=== PATIENT | male | born 1975 | race Caucasian/White ===

== ENCOUNTER 2017-03-09 03:47 | Emergency (ER) | payer OTHER, SELFPAY ==
[2017-03-09 05:38] LABS: MEAN CORPUSCULAR HEMOGLOBIN 30.8 pg (27.0-33.0); MEAN CORPUSCULAR HGB CONC 34.7 g/dl (32.0-36.5); MEAN CORPUSCULAR VOLUME 88.7 fl (80.0-96.0); PLATELET COUNT, AUTOMATED 329 10^3/uL (150-450); RED CELL DISTRIBUTION WIDTH 12.5 % (11.5-14.5); WHITE BLOOD COUNT 11.2 10^3/uL (4.0-10.0)
[2017-03-09 05:56] LABS: METHADONE URINE NEGATIVE (NEGATIVE)
[2017-03-09 06:13] LABS: ALBUMIN 4.2 GM/DL (3.2-5.2); ALBUMIN/GLOBULIN RATIO 1.45 (1.00-1.93); ALKALINE PHOSPHATASE 66 U/L (45-117); ALT/SGPT 32 U/L (12-78); ANION GAP 9 MEQ/L (8-16); AST/SGOT 17 U/L (7-37); BILIRUBIN,DIRECT 0.1 MG/DL (0.0-0.2); BILIRUBIN,TOTAL 0.4 MG/DL (0.2-1.0); BLOOD UREA NITROGEN 10 MG/DL (7-18); CALCIUM LEVEL 8.7 MG/DL (8.5-10.1); CARBON DIOXIDE LEVEL 26 MEQ/L (21-32); CHLORIDE LEVEL 110 MEQ/L (98-107); CREATININE FOR GFR 0.83 MG/DL (0.70-1.30); GLOMERULAR FILTRATION RATE > 60.0 (>60); GLUCOSE, FASTING 90 MG/DL (70-105); POTASSIUM SERUM 3.9 MEQ/L (3.5-5.1); SODIUM LEVEL 145 MEQ/L (136-145); TOTAL PROTEIN 7.1 GM/DL (6.4-8.2)
[2017-03-09 09:30] VITALS: BP 115/75
== END 2017-03-09 09:32 | disposition home or self-care (01) ==
LOC: M ED 03:47
DX: F10.129 Alcohol abuse with intoxication, unspecified (principal); F17.200 Nicotine dependence, unspecified, uncomplicated
CPT/HCPCS: 80048; 80076; 80307; 84443; 85027; 99284; G0480

== ENCOUNTER 2020-11-27 13:53 | Emergency (ER) | payer SELFPAY ==
[~2020-11-27] VITALS: Ht 180.3 cm; Wt 78.3 kg
[2020-11-27] MEDS ORDERED: ONDANSETRON 4MG/2ML VIAL IV ONE (14:10)
[2020-11-27 14:20] LABS: HEMATOCRIT 45.2 % (42.0-52.0); HEMOGLOBIN 15.2 g/dl (13.5-17.5); MEAN CORPUSCULAR HEMOGLOBIN 29.1 pg (27.0-33.0); MEAN CORPUSCULAR HGB CONC 33.6 g/dl (32.0-36.5); MEAN CORPUSCULAR VOLUME 86.6 fl (80.0-96.0); PLATELET COUNT, AUTOMATED 408 10^3/uL (150-450); RED BLOOD COUNT 5.22 10^6/uL (4.30-6.10); WHITE BLOOD COUNT 9.1 10^3/uL (4.0-10.0)
[2020-11-27 14:44] LABS: ALBUMIN 3.7 GM/DL (3.2-5.2); ALT/SGPT 28 U/L (12-78); BILIRUBIN,TOTAL 0.3 MG/DL (0.2-1.0); BLOOD UREA NITROGEN 18 MG/DL (7-18); CALCIUM LEVEL 8.8 MG/DL (8.5-10.1); CARBON DIOXIDE LEVEL 25 MEQ/L (21-32); CHLORIDE LEVEL 110 MEQ/L (98-107); CREATININE FOR GFR 1.12 MG/DL (0.70-1.30); GLOMERULAR FILTRATION RATE > 60.0 (>60); GLUCOSE, FASTING 115 MG/DL (70-100); MAGNESIUM LEVEL 2.2 MG/DL (1.8-2.4); SODIUM LEVEL 142 MEQ/L (136-145); TOTAL PROTEIN 7.1 GM/DL (6.4-8.2)
[2020-11-27 15:01] LABS: LYMPHOCYTES 49 % (16-44); MONOCYTES 10 % (0-5); NEUTROPHILS 41 % (28-66); OVALOCYTES 1+; PLATELET ESTIMATE NORMAL (NORMAL); POIKILOCYTOSIS 1+
[2020-11-27] MEDS ORDERED: NS 1,000 ML IV ONE (15:25)
[2020-11-27 15:39] VITALS: BP 123/78
--- NOTE | 2020-11-28 19:15 | ECGEPIP ---
[facility] - ED Test Date: 2020-11-27 Pat Name: LIT HANDY Department: Room: - Gender: Male Client Coordinator: er : 1975 Requested By: DILLON Green Order Number: [id number] Reading MD: Juany Solorzano Measurements Intervals Molt Rate: 108 P: 72 IA: 128 QRS: -59 QRSD: 88 T: 50 QT: 344 QTc: 460 Interpretive Statements Sinus tachycardia Left axis deviation Junctional ST depression, probably normal irbbb No prior Electronically Signed on 11-28-2020 19:15:11 EDT by Juany Solorzano
== END 2020-11-27 15:35 | disposition left against medical advice (07) ==
LOC: M ED 13:53
DX: F19.130 Other psychoactive substance abuse with withdrawal, uncomplicated (principal); R11.2 Nausea with vomiting, unspecified; R00.0 Tachycardia, unspecified; Z53.9 Procedure and treatment not carried out, unspecified reason; F17.200 Nicotine dependence, unspecified, uncomplicated
CPT/HCPCS: 80047; 80053; 83605; 83735; 84484; 85025; 93005; 96374; 99283; J2405

== ENCOUNTER 2021-07-17 18:51 | Emergency (ER) | payer SELFPAY ==
[~2021-07-17] VITALS: Ht 182.9 cm; Wt 77.2 kg
[2021-07-17 19:31] VITALS: BP 143/87
== END 2021-07-17 20:12 | disposition home or self-care (01) ==
LOC: M ED 18:51
DX: R45.851 Suicidal ideations (principal); F43.0 Acute stress reaction; F17.200 Nicotine dependence, unspecified, uncomplicated; F11.10 Opioid abuse, uncomplicated; F10.10 Alcohol abuse, uncomplicated

== ENCOUNTER 2022-03-31 21:29 | Emergency (ER) | payer SELFPAY ==
[~2022-03-31] VITALS: Ht 180.3 cm; Wt 84.6 kg
[2022-03-31 21:30] VITALS: BP 141/73
== END 2022-03-31 21:56 | disposition left against medical advice (07) ==
LOC: M ED 21:29
DX: Z53.21 Procedure and treatment not carried out due to patient leaving prior to being seen by health care provider (principal)

== ENCOUNTER 2023-01-21 10:46 | Inpatient (IN) | payer OTHER, SELFPAY ==
[~2023-01-21] VITALS: Ht 180.3 cm; Wt 81.1 kg
[2023-01-21 13:04] LABS: BASO % 0.2 % (0.0-1.0); EOS % 0.2 % (0.0-3.0); HEMATOCRIT 45.7 % (42.0-52.0); HEMOGLOBIN 15.6 g/dl (13.5-17.5); LYMPH # 1.6 10^3/uL (1.5-5.0); MEAN CORPUSCULAR HEMOGLOBIN 30.5 pg (27.0-33.0); MEAN CORPUSCULAR HGB CONC 34.1 g/dl (32.0-36.5); MEAN CORPUSCULAR VOLUME 89.4 fl (80.0-96.0); MONO % 10.2 % (2.0-8.0); NEUTROPHILS # 12.3 10^3/uL (1.5-8.5); NEUTROPHILS % 78.9 % (36.0-66.0); PLATELET COUNT, AUTOMATED 253 10^3/uL (150-450); RED BLOOD COUNT 5.11 10^6/uL (4.30-6.10); WHITE BLOOD COUNT 15.6 10^3/uL (4.0-10.0)
[2023-01-21 13:05] LABS: MONO # 1.6 10^3/uL (0.0-0.8)
[2023-01-21] MEDS ORDERED: BOOSTRIX VACCINE (TETANUS/DIPHTH/ACEL. PERTUSSIS) 0.5ML SYR IM ONE (13:05)
[2023-01-21] MEDS ORDERED: ONDANSETRON 4MG 2ML VIAL IV ONE (13:05)
[2023-01-21] MEDS ORDERED: MORPHINE 4 MG/ML 1ML VIAL IV ONE (13:05)
[2023-01-21 13:25] LABS: BLOOD UREA NITROGEN 15 MG/DL (9-23); CALCIUM LEVEL 8.5 MG/DL (8.5-10.1); CARBON DIOXIDE LEVEL 25 MMOL/L (20-31); CHLORIDE LEVEL 105 MMOL/L (98-107); CREATININE FOR GFR 0.82 MG/DL (0.70-1.30); GLOMERULAR FILTRATION RATE > 60.0 (>60); GLUCOSE, FASTING 92 MG/DL (60-100); POTASSIUM SERUM 5.4 MMOL/L (3.5-5.1); SODIUM LEVEL 135 MMOL/L (136-145)
[2023-01-21 14:12] LABS: ERYTHROCYTE SEDIMENTATION RATE 37 mm/hr (0-15)
[2023-01-21] MEDS ORDERED: VANCOMYCIN HCL 1,750 MG in NS 250 ML IV ONE (15:20)
[2023-01-21] MEDS ORDERED: NS 1,000 ML IV ONE (15:20)
[2023-01-21] MEDS ORDERED: MED REC IN PROGRESS XX SCH (15:30)
[2023-01-21] MEDS ORDERED: VANCOMYCIN HCL 1,000 MG, VIAL MATE ADAPTER 1 EACH in D5W 250 ML IV ONE (16:00)
[2023-01-21] MEDS ORDERED: NICOTINE 21MG/24HR 1 EA TRANSDERMAL TD PRN (16:05)
[2023-01-21] MEDS ORDERED: HOME MED LIST COMPLETE! XX SCH (16:05)
[2023-01-21] MEDS ORDERED: ACETAMINOPHEN TAB 650MG DOSE (2X325MG) PO PRN (16:05)
[2023-01-21] MEDS ORDERED: VANCOMYCIN HCL 750 MG, VIAL MATE ADAPTER 1 EACH in D5W 250 ML IV ONE (17:00)
[2023-01-21 17:34] VITALS: BP 136/87; TEMP 100.4; O2SAT 100
[2023-01-21] MEDS: MORPHINE 4 MG/ML 1ML VIAL IV PRN (17:48)
[2023-01-21] MEDS ORDERED: PROHANCE 279.3MG/ML 5ML VIAL As Ordered ONE (17:53)
[2023-01-21] MEDS ORDERED: PROHANCE 279.3MG/ML 15ML VIAL As Ordered ONE (17:53)
[2023-01-21 17:54] LABS: BLOOD UREA NITROGEN 13 MG/DL (9-23); CALCIUM LEVEL 8.4 MG/DL (8.5-10.1); CARBON DIOXIDE LEVEL 24 MMOL/L (20-31); CHLORIDE LEVEL 104 MMOL/L (98-107); CREATININE FOR GFR 0.71 MG/DL (0.70-1.30); GLOMERULAR FILTRATION RATE > 60.0 (>60); GLUCOSE, FASTING 100 MG/DL (60-100); POTASSIUM SERUM 4.2 MMOL/L (3.5-5.1); SODIUM LEVEL 134 MMOL/L (136-145)
[2023-01-21] MEDS ORDERED: VANCOMYCIN HCL 1 MG in IV FLUID PLACE HOLDER 1 EA IV SCH (18:25)
[2023-01-21 18:35] LABS: HIV 1&2 SCREEN NEGATIVE (NEGATIVE)
[2023-01-21] MEDS: NS 1,000 ML IV SCH (18:59)
[2023-01-21] MEDS: PIPERACILLIN/TAZOBACTAM SOD 3.375 GM in D5W MINI-BAG PLUS 50 ML IV SCH ×2 (19:00→23:50)
[2023-01-21 19:47] VITALS: BP 122/72; TEMP 99; O2SAT 98
[2023-01-21] MEDS ORDERED: cefTRIAXone SOD 1GM VIAL IM ONE (20:00)
[2023-01-21] MEDS ORDERED: LIDOCAINE 1% SDV 5ML VIAL DILUENT ONE (20:00)
[2023-01-21] MEDS: HEPARIN SOD (PORCINE) 5000UNITS/ML 1ML VIAL/SYRINGE SQ SCH (21:00)
[2023-01-21] MEDS: VANCOMYCIN HCL 750 MG, VIAL MATE ADAPTER 1 EACH in D5W 250 ML IV SCH (21:01)
[2023-01-21] MEDS: VANCOMYCIN HCL 500 MG in D5W MINI-BAG PLUS 100 ML IV SCH (22:12)
[2023-01-21 22:24] LABS: GC DNA AMPLIFICATION NEGATIVE (NEGATIVE)
[2023-01-21] MEDS: MORPHINE 2 MG/ML 1ML VIAL IV PRN (23:50)
[2023-01-22] MEDS: NS 1,000 ML IV SCH ×3 (02:43→21:19)
[2023-01-22 04:43] VITALS: BP 120/72; TEMP 99.1; O2SAT 98
[2023-01-22] MEDS: MORPHINE 2 MG/ML 1ML VIAL IV PRN ×3 (04:57→19:55)
[2023-01-22] MEDS: PIPERACILLIN/TAZOBACTAM SOD 3.375 GM in D5W MINI-BAG PLUS 50 ML IV SCH ×3 (05:02→17:34)
[2023-01-22] MEDS: HEPARIN SOD (PORCINE) 5000UNITS/ML 1ML VIAL/SYRINGE SQ SCH ×3 (05:04→21:19)
[2023-01-22 05:52] LABS: BASO % 0.2 % (0.0-1.0); EOS # 0.1 10^3/uL (0.0-0.5); EOS % 1.1 % (0.0-3.0); HEMATOCRIT 38.3 % (42.0-52.0); LYMPH # 1.9 10^3/uL (1.5-5.0); LYMPH % 14.6 % (24.0-44.0); MEAN CORPUSCULAR HEMOGLOBIN 30.6 pg (27.0-33.0); MEAN CORPUSCULAR VOLUME 87.4 fl (80.0-96.0); MONO % 13.3 % (2.0-8.0); NEUTROPHILS # 9.3 10^3/uL (1.5-8.5); NEUTROPHILS % 70.4 % (36.0-66.0); PLATELET COUNT, AUTOMATED 233 10^3/uL (150-450); RED BLOOD COUNT 4.38 10^6/uL (4.30-6.10); WHITE BLOOD COUNT 13.2 10^3/uL (4.0-10.0)
[2023-01-22] MEDS: VANCOMYCIN HCL 750 MG, VIAL MATE ADAPTER 1 EACH in D5W 250 ML IV SCH ×3 (06:00→21:18)
[2023-01-22 06:16] LABS: ALBUMIN 2.8 G/DL (3.2-5.2); ALKALINE PHOSPHATASE 62 U/L (46-116); ALT/SGPT 298 U/L (7.0-40); AST/SGOT 270 U/L (<34); BILIRUBIN,DIRECT 0.2 MG/DL (<0.4); BILIRUBIN,TOTAL 0.5 MG/DL (0.3-1.2); BLOOD UREA NITROGEN 11 MG/DL (9-23); CALCIUM LEVEL 8.1 MG/DL (8.5-10.1); CARBON DIOXIDE LEVEL 25 MMOL/L (20-31); CHLORIDE LEVEL 106 MMOL/L (98-107); CREATININE FOR GFR 0.81 MG/DL (0.70-1.30); GLOMERULAR FILTRATION RATE > 60.0 (>60); GLUCOSE, FASTING 107 MG/DL (60-100); MAGNESIUM LEVEL 1.8 MG/DL (1.8-2.4); POTASSIUM SERUM 3.8 MMOL/L (3.5-5.1); SODIUM LEVEL 137 MMOL/L (136-145); TOTAL PROTEIN 5.7 G/DL (5.7-8.2)
[2023-01-22 06:17] LABS: HEPATITIS B SURFACE ANTIBODY POSITIVE (POSITIVE)
[2023-01-22 06:38] LABS: MONO # 1.8 10^3/uL (0.0-0.8)
[2023-01-22 06:39] LABS: HEMOGLOBIN 13.4 g/dl (13.5-17.5)
[2023-01-22] MEDS: VANCOMYCIN HCL 500 MG in D5W MINI-BAG PLUS 100 ML IV SCH ×3 (07:28→22:34)
[2023-01-22 08:30] VITALS: BP 120/70; TEMP 99.2; O2SAT 98
[2023-01-22] MEDS ORDERED: ISOVUE-370 76% 100ML VIAL As Ordered ONE (13:53)
[2023-01-22 14:00] VITALS: BP 122/74; TEMP 98.8; O2SAT 98
[2023-01-22] MEDS: MORPHINE 4 MG/ML 1ML VIAL IV PRN (14:44)
[2023-01-22 20:20] VITALS: BP 117/69; TEMP 99.3; O2SAT 98
[2023-01-22] MEDS: AUGMENTIN 875 MG TAB PO SCH (21:00)
[2023-01-23] MEDS: MORPHINE 2 MG/ML 1ML VIAL IV PRN (03:30)
[2023-01-23] MEDS: NS 1,000 ML IV SCH (03:45)
[2023-01-23] MEDS: VANCOMYCIN HCL 750 MG, VIAL MATE ADAPTER 1 EACH in D5W 250 ML IV SCH (05:02)
[2023-01-23] MEDS: HEPARIN SOD (PORCINE) 5000UNITS/ML 1ML VIAL/SYRINGE SQ SCH (05:03)
[2023-01-23 05:10] VITALS: BP 117/66; TEMP 98.1; O2SAT 96
[2023-01-23 06:25] LABS: BASO % 0.3 % (0.0-1.0); EOS # 0.3 10^3/uL (0.0-0.5); HEMATOCRIT 37.4 % (42.0-52.0); HEMOGLOBIN 12.8 g/dl (13.5-17.5); LYMPH # 2.3 10^3/uL (1.5-5.0); LYMPH % 20.2 % (24.0-44.0); MEAN CORPUSCULAR HEMOGLOBIN 30.3 pg (27.0-33.0); MEAN CORPUSCULAR HGB CONC 34.2 g/dl (32.0-36.5); MEAN CORPUSCULAR VOLUME 88.6 fl (80.0-96.0); MONO % 14.6 % (2.0-8.0); NEUTROPHILS # 6.9 10^3/uL (1.5-8.5); NEUTROPHILS % 61.5 % (36.0-66.0); PLATELET COUNT, AUTOMATED 263 10^3/uL (150-450); RED BLOOD COUNT 4.22 10^6/uL (4.30-6.10); WHITE BLOOD COUNT 11.1 10^3/uL (4.0-10.0)
[2023-01-23 06:51] LABS: ALBUMIN 2.6 G/DL (3.2-5.2); ALKALINE PHOSPHATASE 63 U/L (46-116); ALT/SGPT 327 U/L (7.0-40); AST/SGOT 177 U/L (<34); BILIRUBIN,TOTAL 0.3 MG/DL (0.3-1.2); BLOOD UREA NITROGEN 9 MG/DL (9-23); CALCIUM LEVEL 7.8 MG/DL (8.5-10.1); CARBON DIOXIDE LEVEL 26 MMOL/L (20-31); CHLORIDE LEVEL 109 MMOL/L (98-107); CREATININE FOR GFR 0.77 MG/DL (0.70-1.30); GLOMERULAR FILTRATION RATE > 60.0 (>60); GLUCOSE, FASTING 135 MG/DL (60-100); POTASSIUM SERUM 3.9 MMOL/L (3.5-5.1); SODIUM LEVEL 139 MMOL/L (136-145); TOTAL PROTEIN 5.5 G/DL (5.7-8.2)
[2023-01-23 06:57] LABS: MONO # 1.6 10^3/uL (0.0-0.8)
[2023-01-23] MEDS: VANCOMYCIN HCL 500 MG in D5W MINI-BAG PLUS 100 ML IV SCH (07:32)
[2023-01-23 08:11] LABS: HEPATITIS A IgG TOTAL Positive (Negative); HEPATITIS B CORE ANTIBODY IGG Negative (Negative)
[2023-01-23] MEDS: AUGMENTIN 875 MG TAB PO SCH (08:43)
[2023-01-23 12:07] LABS: HEPATITIS C QUANTITATION 3410000 IU/mL (.)
[2023-01-23] MEDS ORDERED: AMOX875T2 PO (12:07)
[2023-01-23] MEDS ORDERED: BACT800T5 PO (12:07)
== END 2023-01-23 14:08 | disposition home or self-care (01) | DRG 383 ==
LOC: M ED 10:46 → M ED INP 16:28 → ENRESERV 16:48 → M MSPAV 17:32
PROVIDERS: ADMIT Internal Medicine; ATTEND Internal Medicine
DX: L03.113 Cellulitis of right upper limb (principal); F32.A Depression, unspecified; F17.210 Nicotine dependence, cigarettes, uncomplicated; F41.9 Anxiety disorder, unspecified; R74.01 Elevation of levels of liver transaminase levels; Z20.2 Contact with and (suspected) exposure to infections with a predominantly sexual mode of transmission